=== PATIENT | male | born 1980 | race Two or more races ===

== ENCOUNTER 2018-06-09 17:46 | Emergency (ER) | payer OTHER ==
[2018-06-09] MEDS ORDERED: ASPIRIN 81 MG TABLET, CHEWABLE PO ONE (18:12)
--- NOTE | 2018-06-09 18:13 | ER Document Report ---
ED Medical Screen (RME) - General Chief Complaint: Irregular Pulse Stated Complaint: FAST HR/LEFT ARM NUMBNESS Time Seen by Provider: 06/09/18 18:04 Notes: 37 years old male presents today with chest pain left arm numbness for the last few days. On and off. He also claimed that he had numbness and tingling sensation over the upper limbs and lower limbs feeling chest tightness headache feeling dizzy feeling lightheaded. With no history of any anxiety. He is away from home undergoing training in the [place]. On examination unremarkable. To be anxious TRAVEL OUTSIDE OF THE [place] IN LAST 30 DAYS: No - Related Data Allergies/Adverse Reactions: No Known Allergies Allergy (Verified 06/09/18 17:50) Physical Exam - Vital signs Vitals: Temp Pulse Resp BP Pulse Ox 97.5 F 65 16 133/76 H 97 06/09/18 17:57 06/09/18 17:57 06/09/18 17:57 06/09/18 17:57 06/09/18 17:57 Course - Vital Signs Vital signs: Temp Pulse Resp BP Pulse Ox 97.5 F 65 16 133/76 H 97 06/09/18 17:57 06/09/18 17:57 06/09/18 17:57 06/09/18 17:57 06/09/18 17:57
[2018-06-09] MEDS ORDERED: LORAZEPAM 1 MG TABLET PO ONE (18:48)
[2018-06-09 19:05] LABS: ABSOLUTE EOSINOPHILS # (AUTO) 0.2 10^3/uL (0.0-0.6); ABSOLUTE LYMPHOCYTES (AUTO) 3.8 10^3/uL (0.5-4.7); ABSOLUTE MONOCYTES (AUTO) 0.9 10^3/uL (0.1-1.4); ABSOLUTE NEUT (AUTO) 4.8 10^3/uL (1.7-8.2); BASOPHILS % (AUTO) 0.4 % (0-2); EOSINOPHILS % (AUTO) 2.3 % (0-6); HEMATOCRIT 48.2 % (37.9-51.0); HEMOGLOBIN 15.9 g/dL (13.5-17.0); LYMPHOCYTES % (AUTO) 39.1 % (13-45); MEAN CORPUSCULAR VOLUME 73 fl (80-97); MONOCYTES % (AUTO) 9.1 % (3-13); PLATELET COUNT 238 10^3/uL (150-450); RED BLOOD COUNT 6.62 10^6/uL (4.35-5.55); RED CELL DISTRIBUTION WIDTH 15.5 % (11.5-14.0); SEGMENTED NEUTROPHILS % (AUTO) 49.1 % (42-78); TOTAL CELLS COUNTED % (AUTO) 100 %; WHITE BLOOD COUNT 9.8 10^3/uL (4.0-10.5)
--- NOTE | 2018-06-09 19:18 | ER Document Report ---
ED General - General Chief Complaint: Irregular Pulse Stated Complaint: FAST HR/LEFT ARM NUMBNESS Time Seen by Provider: 06/09/18 18:04 Notes: Patient is a 37-year-old male without chronic medical problems who presents with several days of intermittent palpitations, chest tightness, shortness of breath, perioral anesthesia as well as tingling of the bilateral hands and feet. He states that the symptoms come and go randomly. He states that he is uncertain of why he started having symptoms within the last several days. He denies any history of similar symptoms in the past. He states that he does not generally have anxiety. [place] and is away from his family. He has therefore been unable to contact his primary care doctor regarding today's concerns. He currently denies any symptoms at the time of my assessment. Nothing seems to trigger his symptoms and they do resolve spontaneously. He notes that he is only slept 4 hours in the past 3 days. TRAVEL OUTSIDE OF THE [place] IN LAST 30 DAYS: No - Related Data Allergies/Adverse Reactions: No Known Allergies Allergy (Verified 06/09/18 17:50) Past Medical History - General Information source: Patient - Social History Smoking Status: Never Smoker Frequency of alcohol use: Social Drug Abuse: None Lives with: Spouse/Significant other Family History: Reviewed & Not Pertinent Patient has suicidal ideation: No Patient has homicidal ideation: No Renal/ Medical History: Denies: Hx Peritoneal Dialysis Past Surgical History: Reports: Hx Orthopedic Surgery - ACL R knee Review of Systems - Review of Systems Notes: Constitutional: Negative for fever. HENT: Negative for sore throat. Eyes: Negative for visual changes. Cardiovascular: Positive for palpitations Respiratory: Positive for intermittent shortness of breath Gastrointestinal: Negative for abdominal pain, vomiting or diarrhea. Genitourinary: Negative for dysuria. Musculoskeletal: Negative for back pain. Skin: Negative for rash. Neurological: Negative for headaches, weakness positive for intermittent paresthesias 10 point ROS negative except as marked above and in HPI. Physical Exam - Vital signs Vitals: Temp Pulse Resp BP Pulse Ox 97.5 F 65 16 133/76 H 97 06/09/18 17:57 06/09/18 17:57 06/09/18 17:57 06/09/18 17:57 06/09/18 17:57 Interpretation: Normal Notes: PHYSICAL EXAMINATION: GENERAL: Well-appearing, well-nourished and in no acute distress. HEAD: Atraumatic, normocephalic. EYES: Pupils equal round and reactive to light, extraocular movements intact, sclera anicteric, conjunctiva are normal. ENT: nares patent, oropharynx clear without exudates. Moist mucous membranes. NECK: Normal range of motion, supple without lymphadenopathy LUNGS: Breath sounds clear to auscultation bilaterally and equal. No wheezes rales or rhonchi. HEART: Regular rate and rhythm without murmurs ABDOMEN: Soft, nontender, normoactive bowel sounds. No guarding, no rebound. No masses appreciated. EXTREMITIES: Normal range of motion, no pitting or edema. No cyanosis. NEUROLOGICAL: Face symmetric. Tongue protrudes midline. Extraocular motions intact. Pupils are 2 mm and equally reactive. Normal speech, normal gait. 5 out of 5 strength in both the distal and proximal upper and lower extremities bilaterally. Sensation is grossly intact throughout. Finger to nose testing normal. Pronator drift normal. PSYCH: Normal mood, normal affect. SKIN: Warm, Dry, normal turgor, no rashes or lesions noted. Course - Re-evaluation Re-evalutation: 06/09/18 19:13 Patient presents with multiple vague complaints that did not appear to be concerning for any acute life-threatening pathology. Vitals are within normal limits at triage and at time of discharge. Physical examination is unremarkable. Patient has tolerated oral intake without difficulty. Patient was not noted to be in distress at any point during their ER visit. Symptoms appear to be most likely be consistent with anxiety and the workup today for more concerning alternative etiologies is unremarkable. I have encouraged the patient to follow-up with cardiology and consider a Holter monitor and echocardiogram to further exclude a more concerning etiology of his symptoms. At this time, based on the reassuring evaluation, I do not suspect an acute VA, pulmonary embolus, aortic dissection, acute intra-abdominal pathology, stroke, or sepsis.Will discharge with return precautions and follow-up recommendations. Verbal discharge instructions given a the bedside and opportunity for questions given. Medication warnings reviewed. Patient is in agreement with this plan and has verbalized understanding of return precautions and the need for primary care follow-up in the next 24-72 hours. - Vital Signs Vital signs: Temp Pulse Resp BP Pulse Ox 97.5 F 65 19 115/73 97 06/09/18 17:57 06/09/18 17:57 06/09/18 20:01 06/09/18 20:01 06/09/18 20:01 - Laboratory Result Diagrams: 06/09/18 16:52 06/09/18 16:52 Laboratory results interpreted by me: 06/09/18 16:52 RBC 6.62 H MCV 73 L MCH 24.0 L RDW 15.5 H - Diagnostic Test Radiology reviewed: Image reviewed, Reports reviewed Radiology results interpreted by me: 06/09/18 19:18 Chest x-ray: No acute infiltrate or pneumothorax - EKG Interpretation by Me Additional EKG results interpreted by me: 06/09/18 19:19 Sinus rhythm. Rate 60. No ST elevations or depressions. QTC is 420. Discharge - Discharge Clinical Impression: Multiple complaints, Palpitations Condition: Good Disposition: HOME, SELF-CARE Additional Instructions: Please return to the emergency room immediately if you experience any concerning symptoms including high fevers, severe headache, chest pain, difficulty breathing, abdominal pain, slurred speech, numbness or weakness in your arms or legs, or any other symptom that concerns you. Your labs, EKG, x-ray are all normal. I strongly encourage you to follow-up with your primary care doctor regarding your multiple concerns today
[2018-06-09 19:27] LABS: ALANINE AMINOTRANSFERASE 57 U/L (21-72); ALBUMIN 4.4 g/dL (3.5-5.0); ALKALINE PHOSPHATASE 44 U/L (38-126); ANION GAP 10 (5-19); ASPARTATE AMINO TRANSFERASE 39 U/L (17-59); BILIRUBIN,DIRECT 0.4 mg/dL (0.0-0.4); BILIRUBIN,TOTAL 0.9 mg/dL (0.2-1.3); BLOOD UREA NITROGEN 17 mg/dL (7-20); CALCIUM 9.5 mg/dL (8.4-10.2); CARBON DIOXIDE 25 mmol/L (22-30); CHLORIDE 103 mmol/L (98-107); GLUCOSE 93 mg/dL (75-110); POTASSIUM 4.4 mmol/L (3.6-5.0); SODIUM 137.5 mmol/L (137-145); TOTAL PROTEIN 7.9 g/dL (6.3-8.2)
--- NOTE | 2018-06-09 20:13 | RADIOLOGY REPORT (SQ) ---
EXAM DESCRIPTION: CHEST SINGLE VIEW COMPLETED DATE/TIME: 06/09/2018 7:58 pm REASON FOR STUDY: sob COMPARISON: None. EXAM PARAMETERS: NUMBER OF VIEWS: One view. TECHNIQUE: Single frontal radiographic view of the chest acquired. RADIATION DOSE: NA LIMITATIONS: None. FINDINGS: LUNGS AND PLEURA: No opacities, masses or pneumothorax. No pleural effusion. MEDIASTINUM AND HILAR STRUCTURES: No masses. Contour normal. HEART AND VASCULAR STRUCTURES: Heart normal in size. Normal vasculature. BONES: No acute findings. HARDWARE: None in the chest. OTHER: No other significant finding. IMPRESSION: NO ACUTE RADIOGRAPHIC FINDING IN THE CHEST. TECHNICAL DOCUMENTATION: JOB ID: [id number] [employer]- All Rights Reserved Reading location - IP/workstation name: [email or web address]
[2018-06-09 20:43] VITALS: BP 115/73
--- NOTE | 2018-06-09 21:06 | EKG REPORT ---
SEVERITY:- NORMAL ECG - SINUS RHYTHM : Confirmed by: Nasrin Francisco MD 09-Jun-2018 21:05:44
== END 2018-06-09 20:47 | disposition home or self-care (01) ==
LOC: ER 17:46
DX: R20.0 Anesthesia of skin (principal); R00.2 Palpitations; R07.9 Chest pain, unspecified; R06.02 Shortness of breath
CPT/HCPCS: 36415; 71045; 80053; 84484; 85025; 93005; 93010; 99285